=== PATIENT | female | born 1980 | race Caucasian/White ===

== ENCOUNTER 2024-10-29 11:16 | Emergency (ER) | payer OTHER ==
[~2024-10-29] VITALS: Ht 154.9 cm; Wt 81.8 kg
[2024-10-29 11:48] LABS: COVID AG,FIA SOURCE NASAL SWAB
[2024-10-29 12:10] LABS: SARS-COV2 (COVID) ANTIGEN,FIA Negative (Negative)
[2024-10-29 12:11] LABS: INFLUENZA TYPE A NEGATIVE FOR TYPE A (NEGATIVE); INFLUENZA TYPE B NEGATIVE FOR TYPE B (NEGATIVE)
[2024-10-29 12:44] VITALS: BP 116/75; PULSE 72; RESP 18; TEMP 98.3; O2SAT 98
[2024-10-29] MEDS: OXYMETAZOLINE HCL 0.05% 15 ML NASAL SPRAY NASAL ONE (12:56)
[2024-10-29] MEDS ORDERED: AMOX250C4 PO ×2 (13:07→17:16)
== END 2024-10-29 13:14 | disposition home or self-care (01) ==
LOC: EMS 11:21
DX: J32.9 Chronic sinusitis, unspecified (principal); Z20.822 Contact with and (suspected) exposure to COVID-19; Z87.891 Personal history of nicotine dependence
CPT/HCPCS: 87804; 99283

== ENCOUNTER 2025-02-09 19:10 | Emergency (ER) | payer OTHER ==
[~2025-02-09] VITALS: Ht 144.8 cm; Wt 79.5 kg
[~2025-02-09 19:10] MED LIST: AMOX250C4 PO
[2025-02-09 19:16] VITALS: BP 137/77; PULSE 77; RESP 18; TEMP 98.8; O2SAT 96
[2025-02-09] MEDS: KETOROLAC TROMETHAMINE 30 MG/ML VIAL IM ONE (22:38)
[2025-02-09] MEDS ORDERED: IBUP-2338 PO (23:11)
== END 2025-02-09 23:31 | disposition home or self-care (01) ==
LOC: EMS 19:12
DX: G56.01 Carpal tunnel syndrome, right upper limb (principal); Z79.899 Other long term (current) drug therapy
CPT/HCPCS: 99283; 73110; 29125; 96372; J1885